=== PATIENT | female | born 1965 | race Two or more races ===

== ENCOUNTER 2022-07-20 11:59 | Emergency (ER) | payer OTHER ==
[~2022-07-20] VITALS: Ht 152.4 cm; Wt 54.4 kg
[2022-07-20] MEDS ORDERED: GLIMEPIRIDE4 M1 PO (13:07)
[2022-07-20] MEDS ORDERED: JANUMET XR 50-1 EAC1 PO (13:07)
[2022-07-20] MEDS ORDERED: LOSARTAN POTAS100 MG PO (13:07)
[2022-07-20] MEDS ORDERED: ATORVASTATIN CA40 MG PO (13:07)
== END 2022-07-20 17:45 | disposition home or self-care (01) ==
LOC: ER 11:59
DX: J10.1 Influenza due to other identified influenza virus with other respiratory manifestations (principal)

== ENCOUNTER 2023-08-23 20:34 | Emergency (ER) | payer OTHER ==
[~2023-08-23] VITALS: Ht 152.4 cm; Wt 56.2 kg
[~2023-08-23 20:34] MED LIST: ATORVASTATIN CA40 MG PO; GLIMEPIRIDE4 M1 PO; JANUMET XR 50-1 EAC1 PO; LOSARTAN POTAS100 MG PO
[2023-08-23] MEDS ORDERED: AMOX-CLAV 875-1 EACH PO (21:53)
[2023-08-23] MEDS ORDERED: NAPROXEN500 MG PO (21:53)
== END 2023-08-23 22:48 | disposition home or self-care (01) ==
LOC: ER 20:34
DX: M79.632 Pain in left forearm (principal); W55.01XA Bitten by cat, initial encounter; Y93.89 Activity, other specified; Y92.89 Other specified places as the place of occurrence of the external cause; Y99.8 Other external cause status

== ENCOUNTER 2025-05-26 10:45 | Inpatient (IN) | payer OTHER ==
[~2025-05-26] VITALS: Ht 152.4 cm; Wt 54.4 kg
[~2025-05-26 10:45] MED LIST changes: +AMOX-CLAV 875-1 EACH PO; +NAPROXEN500 MG PO
[2025-05-31] MEDS ORDERED: LIDOCAINE HCL 1%/EPINEPHRINE 20ML VIAL IJ ONE (06:54)
[2025-05-31] MEDS ORDERED: BUPIVACAINE HCL/MPF 0.5% 30ML VIAL ONE (06:54)
[2025-05-31] MEDS ORDERED: CHLORHEXIDINE GLUCONATE 120 ML BOTTLE TOP ONE (06:54)
[2025-05-31] MEDS ORDERED: METRONIDAZOLE/SODIUM CHLORIDE 500 MG/100 ML PIGGYBACK IV ONE (07:02)
[2025-05-31] MEDS ORDERED: CEFTRIAXONE SODIUM 2,000 MG VIAL ONE (07:02)
[2025-05-31] MEDS ORDERED: DEXTROSE 50 % IN WATER 0.5 G/ML DISP.SYRIN IV PRN ×2 (09:30→09:45)
[2025-05-31] MEDS ORDERED: ONDANSETRON HCL 2 MG/ML VIAL IV PRN ×2 (09:30→09:45)
[2025-05-31] MEDS ORDERED: MORPHINE SULFATE 4 MG/ML CARTRIDGE IV PRN ×2 (09:30→09:45)
[2025-05-31] MEDS ORDERED: OxyCODONE HCL 5 MG TABLET (ROXICODONE) PO PRN ×2 (09:30→09:45)
[2025-05-31] MEDS ORDERED: RINGERS SOLUTION,LACTATED 1,000 ML IV SCH ×2 (09:30→09:45)
[2025-05-31] MEDS ORDERED: ONDANSETRON HCL 2 MG/ML VIAL ONE (09:52)
[2025-05-31 12:06] LABS: BASO % 0.1 % (0.1-1.2); EOS # 0.01 (0.04-0.54); EOS % 0.1 % (0.7-7.0); LYMPH # 1.18 (1.18-3.74); LYMPH % 7.5 % (19.3-53.1); MEAN PLATELET VOLUME 9.50 fl (9.4-12.4); MONO # 0.82 (0.24-0.82); MONO % 5.2 % (4.7-12.5); NEUT # 13.55 (1.56-6.13); NEUT % 86.8 % (34.0-71.1); RED CELL DISTRIBUTION WIDTH 13.2 % (11.6-14.4)
[2025-05-31 12:55] LABS: BUN CREA RATIO 17.0 (7.0-25.0); CREATININE SERUM 1.67 mg/dL (0.55-1.02); GFR 31.62; GLUCOSE FASTING 260.0 mg/dL (65-100); OSMOLALITY SERUM 290.0 MOSM/KG (275-295)
[2025-05-31] MEDS ORDERED: HYOSCYAMINE SULFATE 0.125 MG TAB.SUBL SL SCH ×2 (13:00)
[2025-05-31] MEDS ORDERED: SIMETHICONE 125 MG CAPSULE PO SCH (13:00)
[2025-05-31] MEDS ORDERED: DEXTROSE 50 % IN WATER 0.5 G/ML VIAL IV PRN (13:45)
[2025-05-31] MEDS ORDERED: ENALAPRILAT DIHYDRATE 1.25 MG/ML VIAL IV PRN (13:45)
[2025-05-31] MEDS ORDERED: INSULIN LISPRO 1,000 UNIT/10 ML UNITS SUBCUTANEO PRN (13:45)
[2025-05-31] MEDS ORDERED: ACETAMINOPHEN 500 MG GEL..CAP PO SCH ×2 (14:00)
[2025-05-31] MEDS ORDERED: HYOSCYAMINE SULFATE 0.125 MG TAB.SUBL ONE (15:59)
[2025-05-31] MEDS ORDERED: METOCLOPRAMIDE HCL 5 MG/ML VIAL ONE (15:59)
[2025-05-31] MEDS ORDERED: SIMETHICONE 125 MG CAPSULE PO ONE (15:59)
[2025-05-31] MEDS ORDERED: GABAPENTIN 300 MG CAPSULE PO ONE (15:59)
[2025-05-31 16:47] VITALS: BP 136/75; O2SAT 99
[2025-05-31] MEDS ORDERED: GABAPENTIN 300 MG CAPSULE PO SCH ×2 (17:00)
[2025-05-31] MEDS ORDERED: METOCLOPRAMIDE HCL 5 MG/ML VIAL IV SCH (17:00)
[2025-05-31] MEDS ORDERED: CELECOXIB 200 MG CAPSULE PO SCH (21:00)
[2025-05-31] MEDS ORDERED: FAMOTIDINE/PF 20 MG/2 ML VIAL IV PUSH SCH ×2 (21:00)
[2025-06-01] VITALS: BP 111/70; O2SAT 97
[2025-06-01 06:27] LABS: BASO % 0.3 % (0.1-1.2); EOS # 0.03 (0.04-0.54); EOS % 0.3 % (0.7-7.0); LYMPH # 1.56 (1.18-3.74); LYMPH % 13.5 % (19.3-53.1); MEAN PLATELET VOLUME 9.40 fl (9.4-12.4); MONO # 0.99 (0.24-0.82); MONO % 8.5 % (4.7-12.5); NEUT # 8.96 (1.56-6.13); NEUT % 77.2 % (34.0-71.1); RED CELL DISTRIBUTION WIDTH 13.1 % (11.6-14.4)
[2025-06-01 07:03] LABS: BUN CREA RATIO 18.0 (7.0-25.0); CREATININE SERUM 0.96 mg/dL (0.55-1.02); GFR 59.9; GLUCOSE FASTING 160.0 mg/dL (65-100); OSMOLALITY SERUM 286.0 MOSM/KG (275-295)
[2025-06-01] MEDS ORDERED: LACTOBACILLUS ACIDOPHILUS 1 CAP CAP PO SCH (09:00)
[2025-06-01] MEDS ORDERED: ATORVASTATIN CALCIUM 40 MG TABLET PO SCH ×2 (09:00→17:00)
[2025-06-01] MEDS ORDERED: MAGNESIUM SULFATE IN WATER 50 ML IV NR (09:00)
[2025-06-01] MEDS ORDERED: LOSARTAN POTASSIUM 100 MG TABLET PO SCH (09:00)
[2025-06-01] MEDS ORDERED: AMINO ACIDS/PROTEIN HYDROLYS 30 ML BLIST.PACK PO SCH (09:00)
[2025-06-01] MEDS ORDERED: LACTULOSE 20 G/30 ML BLIST.PACK PO SCH ×2 (09:00)
[2025-06-01 09:57] VITALS: BP 128/68; O2SAT 98
[2025-06-01] MEDS ORDERED: ENOXAPARIN SODIUM 40 MG/0.4 ML SYRINGE SUBCUTANEO SCH ×2 (17:00)
[2025-06-01 17:17] VITALS: BP 118/77; O2SAT 98
[2025-06-01 23:44] VITALS: BP 102/65; O2SAT 95
[2025-06-02 06:41] LABS: BASO % 0.5 % (0.1-1.2); EOS # 0.12 (0.04-0.54); EOS % 1.8 % (0.7-7.0); LYMPH # 1.69 (1.18-3.74); LYMPH % 25.9 % (19.3-53.1); MEAN PLATELET VOLUME 9.60 fl (9.4-12.4); MONO # 0.48 (0.24-0.82); MONO % 7.4 % (4.7-12.5); NEUT # 4.19 (1.56-6.13); NEUT % 64.2 % (34.0-71.1); RED CELL DISTRIBUTION WIDTH 13.2 % (11.6-14.4)
[2025-06-02 07:08] LABS: BUN CREA RATIO 20.0 (7.0-25.0); CREATININE SERUM 0.6 mg/dL (0.55-1.02); GFR 103.04; GLUCOSE FASTING 143.0 mg/dL (65-100); OSMOLALITY SERUM 285.0 MOSM/KG (275-295)
[2025-06-02 08:00] VITALS: BP 115/71; O2SAT 96
[2025-06-02] MEDS ORDERED: FAMOTIDINE/PF 20 MG/2 ML VIAL IV PUSH SCH (09:00)
[2025-06-02] MEDS ORDERED: ENOXAPARIN SODIUM 40 MG/0.4 ML SYRINGE SUBCUTANEO SCH ×2 (09:00)
[2025-06-02 12:04] LABS: BASO % 0.4 % (0.1-1.2); EOS # 0.11 (0.04-0.54); EOS % 1.4 % (0.7-7.0); LYMPH # 2.15 (1.18-3.74); LYMPH % 26.8 % (19.3-53.1); MEAN PLATELET VOLUME 9.30 fl (9.4-12.4); MONO # 0.57 (0.24-0.82); MONO % 7.1 % (4.7-12.5); NEUT # 5.14 (1.56-6.13); NEUT % 64.2 % (34.0-71.1); RED CELL DISTRIBUTION WIDTH 13.2 % (11.6-14.4)
[2025-06-02 16:48] VITALS: BP 114/72; O2SAT 97
[2025-06-03] VITALS: BP 106/61; O2SAT 96
[2025-06-03 07:28] LABS: BASO % 0.6 % (0.1-1.2); EOS # 0.20 (0.04-0.54); EOS % 3.1 % (0.7-7.0); LYMPH # 1.82 (1.18-3.74); LYMPH % 28.4 % (19.3-53.1); MEAN PLATELET VOLUME 9.50 fl (9.4-12.4); MONO # 0.47 (0.24-0.82); MONO % 7.3 % (4.7-12.5); NEUT # 3.86 (1.56-6.13); NEUT % 60.4 % (34.0-71.1); RED CELL DISTRIBUTION WIDTH 13.0 % (11.6-14.4)
[2025-06-03 08:08] LABS: BUN CREA RATIO 16.0 (7.0-25.0); CREATININE SERUM 0.75 mg/dL (0.55-1.02); GFR 79.65; GLUCOSE FASTING 203.0 mg/dL (65-100); OSMOLALITY SERUM 292.0 MOSM/KG (275-295)
[2025-06-03 08:10] VITALS: BP 131/72; O2SAT 99
[2025-06-03] MEDS ORDERED: MAGNESIUM SULFATE IN WATER 50 ML IV ONE (10:00)
[2025-06-03] MEDS ORDERED: GABAPENTIN300 MG PO (10:31)
[2025-06-03] MEDS ORDERED: PAIN RELIEVER500 M2 PO (10:32)
== END 2025-06-03 14:33 | disposition home or self-care (01) | DRG 803 ==
LOC: O/R 05-31 06:00 → SURH 05-31 08:15 → SURG 05-31 14:32
PROVIDERS: Internal Medicine Geriatric Medicine; ADMIT Surgery; ATTEND Surgery
PROC: 0DBP4ZZ Excision of Rectum, Percutaneous Endoscopic Approach (ICD-10-PCS; 2025-05-31)
PROC: 0DTN4ZZ Resection of Sigmoid Colon, Percutaneous Endoscopic Approach (ICD-10-PCS; 2025-05-31)
PROC: 07BC4ZZ Excision of Pelvis Lymphatic, Percutaneous Endoscopic Approach (ICD-10-PCS; principal; 2025-05-31 08:15)
DX: R59.0 Localized enlarged lymph nodes (principal); K62.5 Hemorrhage of anus and rectum; I11.9 Hypertensive heart disease without heart failure